=== PATIENT | female | born 1955 | race Caucasian/White ===

== ENCOUNTER 2020-02-21 14:12 | Observation (INO) | payer MEDICARE, OTHER ==
[2020-02-21] MEDS ORDERED: Sodium Chloride 0.9% 10 ML Syringe FLUSH PRN (14:18)
--- NOTE | 2020-02-21 14:29 | EDM.PDOC ---
ED HPI GENERAL MEDICAL PROBLEM - General Chief Complaint: Cardiovascular Problem Stated Complaint: DIZZINESS/CHEST PAIN Time Seen by Provider: 02/21/20 14:12 Source of Information: Reports: Patient History Limitations: Reports: No Limitations - History of Present Illness INITIAL COMMENTS - FREE TEXT/NARRATIVE: 64 YO WF WITH PMH OF ORTHOSTATIC HYPOTENSION PRESENTS TO ER FROM CLINIC WHERE SHE COMPLAINED OF DIZZINESS AND LIGHTHEADEDNESS WITH ASSOCIATED CHEST PAIN AND LEFT ARM NUMBNESS WHICH BEGAN 3 DAYS AGO. PT REPORTS DIZZINESS HAS BEEN GOING ON FOR THE LAST 2 WEEKS, BUT 3 DAYS AGO SHE DEVELOPED INTERMITTENT CHEST PRESSURE WITH DYSPNEA ON EXERTION AND FATIGUE. PT DENIES DIAPHORESIS, OR NAUSEA/VOMITING. PT DENIES FEVER/CHILLS, NO COUGH/CONGESTION, NO URI SYMPTOMS. Duration: Day(s): (3) Location: Reports: Chest Severity: Mild Improves with: Reports: Rest Worsens with: Reports: Movement Associated Symptoms: Reports: Chest Pain, Shortness of Breath, Weakness. Denies: Confusion, Fever/Chills, Nausea/Vomiting, Rash, Syncope Middle Chest Pain Score (Numeric/FACES): 8 - Related Data Allergies Allergy/AdvReac Type Severity Reaction Status Date / Time alcohol Allergy Tremors Verified 02/21/20 14:35 caffeine Allergy Other Verified 02/21/20 14:35 codeine Allergy Other Verified 02/21/20 14:35 Home Meds: Home Meds Aspirin [Ecotrin EC] 81 mg PO DAILY 06/13/15 [History] Clopidogrel [Plavix] 75 mg PO DAILY 06/13/15 [History] Gabapentin [Neurontin] 300 mg PO TID 06/13/15 [History] Hydrocodone/Acetaminophen [Hydrocodone-Acetamin 10-325 mg] 1 - 2 tab PO Q4H PRN 06/13/15 [History] Morphine Sulfate [Morphine Sulfate ER] 60 mg PO BID 06/13/15 [History] Multivitamin [Multi-Day Vitamins] 1 tab PO DAILY 06/13/15 [History] ondansetron HCL [Zofran] 4 mg PO DAILY 06/13/15 [History] Albuterol [Ventolin HFA] 2 puff INH Q4H PRN 02/21/20 [History] Black Cohosh 540 mg PO ASDIRECTED 02/21/20 [History] Cetirizine [ZyrTEC] 10 mg PO DAILY 02/21/20 [History] Cranberry 500 mg PO ASDIRECTED 02/21/20 [History] Donepezil HCl [Aricept] 10 mg PO BEDTIME 02/21/20 [History] Lactobacillus Acidophilus [Probiotic] 1 each PO DAILY 02/21/20 [History] Magnesium Oxide [Magnesium] 400 mg PO DAILY 02/21/20 [History] [place]-3S/DHA/Epa/Fish Oil [[place]-3 Fish Oil 1,000 mg Sfgl] 1 each PO ASDIRECTED 02/21/20 [History] SUMAtriptan succinate [Imitrex] 100 mg PO ASDIRECTED 02/21/20 [History] Simethicone [Gas-X] 125 mg PO ASDIRECTED 02/21/20 [History] Vitamin B Complex [B Complex] 1 each PO DAILY 02/21/20 [History] Vitamin E Mixed [Vitamin E] 1,000 unit PO ASDIRECTED 02/21/20 [History] estradioL [Estrace Vaginal] 1 applic VAG BEDTIME 02/21/20 [History] Past Medical History HEENT History: Reports: Impaired Vision Musculoskeletal History: Reports: Fracture, Neck Pain, Chronic, Other (See Below) Other Musculoskeletal History: Fracture vertebra in neck x 2. Neurological History: Reports: TIA - Past Surgical History GI Surgical History: Reports: Cholecystectomy ED ROS GENERAL - Review of Systems Review Of Systems: See Below Constitutional: Reports: Weakness HEENT: Reports: No Symptoms Respiratory: Reports: No Symptoms, Shortness of Breath Cardiovascular: Reports: Chest Pain, Lightheadedness Endocrine: Reports: No Symptoms GI/Abdominal: Reports: No Symptoms : Reports: No Symptoms Musculoskeletal: Reports: No Symptoms Skin: Reports: No Symptoms Neurological: Reports: Dizziness, Numbness. Denies: Seizure, Syncope, Trouble Speaking, Difficulty Walking, Weakness Psychiatric: Reports: No Symptoms Hematologic/Lymphatic: Reports: No Symptoms Immunologic: Reports: No Symptoms ED EXAM, DIZZINESS - Physical Exam Exam: See Below Exam Limited By: No Limitations General Appearance: Alert, WD/WN, No Apparent Distress Eye Exam: Bilateral Eye: EOMI, PERRL Throat/Mouth: Normal Inspection, Normal Lips, Normal Teeth, Normal Gums, Normal Oropharynx, Normal Voice, No Airway Compromise Head Exam: Atraumatic, Normocephalic Neck: Normal Inspection, Supple, Non-Tender, Full Range of Motion Respiratory/Chest: No Respiratory Distress, Lungs Clear, Normal Breath Sounds, No Accessory Muscle Use, Chest Non-Tender Cardiovascular: Normal Peripheral Pulses, Regular Rate, Rhythm, No Edema, No Gallop, No JVD, No Murmur, No Rub, Bradycardia GI/Abdominal: Normal Bowel Sounds, Soft, Non-Tender, No Organomegaly, No Distention, No Abnormal Bruit, No Mass Neurological: Alert, Normal Mood/Affect, Normal Dorsiflexion, CN II-XII Intact, Normal Plantar Flexion, Normal Gait, Normal Reflexes, No Motor/Sensory Deficits, Oriented x 3 Extremities: Normal Inspection, Normal Range of Motion, Non-Tender, No Pedal Edema, Normal Capillary Refill Psychiatric: Normal Affect, Normal Mood Skin Exam: Warm, Dry, Intact, Normal Color, No Rash #1 Interpretation EKG Date: 02/21/20 Time: 14:26 Rhythm: NSR Rate (Beats/Min): 44 [place]: Normal P-Wave: Present QRS: Normal ST-T: Normal QT: Normal Course - Vital Signs Last Recorded V/S: Last Vital Signs Temp 97.0 F 02/21/20 14:15 Pulse 49 L 02/21/20 15:45 Resp 7 L 02/21/20 15:45 BP 150/81 H 02/21/20 15:45 Pulse Ox 97 02/21/20 15:45 - Orders/Labs/Meds Orders: Active Orders 24 hr Category Date Time Status EKG Documentation Completion [RC] ASDIRECTED Care 02/21/20 14:20 Ordered Peripheral IV Care [RC] . DIRECTED Care 02/21/20 14:19 Ordered FREE T3 [REF] Stat Lab 02/21/20 14:36 Ordered Sodium Chloride 0.9% [Saline Flush] Med 02/21/20 14:18 Ordered 10 ml FLUSH Q8HR PRN Peripheral IV Insertion Adult [OM.PC] Routine Oth 02/21/20 14:18 Ordered EKG 12 Lead [EK] Stat Ther 02/21/20 14:18 Ordered Medication Orders Sodium Chloride (Saline Flush) 10 ml FLUSH Q8HR PRN PRN Reason: keep vein open Last Admin: 02/21/20 15:00 Dose: 10 ml Documented by: DEYSI Labs: Laboratory Tests 02/21/20 02/21/20 02/21/20 Range/Units 14:25 14:25 15:05 WBC 7.87 (5.00-10.00) 10^3/uL RBC 4.72 (3.80-5.50) 10^6/uL Hgb 14.4 (12.0-16.0) g/dL Hct 43.1 (37.0-47.0) % MCV 91.3 (82.0-92.0) fL MCH 30.5 (27.0-31.0) pg MCHC 33.4 (32.0-36.0) g/dL RDW 12.4 (11.5-14.5) % Plt Count 154 (150-400) 10^3/uL MPV 10.5 H (7.4-10.4) fL Immature Gran % (Auto) 0.0 (0.0-5.0) % Neut % (Auto) 54.1 (50.0-70.0) % Lymph % (Auto) 36.6 (20.0-40.0) % [place] % (Auto) 6.9 (2.0-8.0) % Eos % (Auto) 1.9 (1.0-3.0) % Baso % (Auto) 0.5 (0.0-1.0) % Neut # (Auto) 4.26 (2.50-7.00) 10^3/uL Lymph # (Auto) 2.88 (1.00-4.00) 10^3/uL [place] # (Auto) 0.54 (0.10-0.80) 10^3/uL Eos # (Auto) 0.15 (0.10-0.30) 10^3/uL Baso # (Auto) 0.04 (0.00-0.10) 10^3/uL Immature Gran # (Auto) 0.00 (0.00-0.50) 10^3/uL PT 9.9 (9.2-11.2) SEC INR 1.0 (0.9-1.1) APTT 28.7 (22.8-31.4) SEC Sodium 139 (136-145) mmol/L Potassium 4.3 (3.3-5.3) mmol/L Chloride 104 (98-115) mmol/L Carbon Dioxide 30.9 (21.0-32.0) mmol/L Anion Gap 8.4 (5-15) mmol/L BUN 12 (6-25) mg/dL Creatinine 0.78 (0.51-1.17) mg/dL Est Cr Clr Drug Dosing 65.57 mL/min Estimated GFR (MDRD) > 60 mL/min Glucose 101 H (75 - 99) mg/dL Calcium 9.0 (8.7-10.3) mg/dL Total Bilirubin 0.5 (0.2-1.0) mg/dL AST 24 (15-37) U/L ALT 19 (12-78) U/L Alkaline Phosphatase 57 (46-116) IU/L Creatine Kinase 52 (26-276) U/L CK-MB (CK-2) 0.70 (0.00-4.30) ng/mL Troponin I < 0.04 (0.00-0.070) ng/mL Total Protein 7.4 (6.4-8.2) g/dL Albumin 3.45 (3.00-4.80) g/dL Free T4 (0.59-1.17) ng/dL TSH, Ultra Sensitive (0.340-4.820) uIU/mL Urine Opiates Screen (NEGATIVE) Ur Oxycodone Screen (NEGATIVE) Urine Methadone Screen (NEGATIVE) Ur Propoxyphene Screen (NEGATIVE) Ur Barbiturates Screen (NEGATIVE) Ur Tricyclics Screen (NEGATIVE) Ur Phencyclidine Scrn (NEGATIVE) Ur Amphetamine Screen (NEGATIVE) U Methamphetamines Scrn (NEGATIVE) U Benzodiazepines Scrn (NEGATIVE) U Cocaine Metab Screen (NEGATIVE) U Marijuana (THC) Screen (NEGATIVE) 02/21/20 02/21/20 Range/Units 15:05 15:38 WBC (5.00-10.00) 10^3/uL RBC (3.80-5.50) 10^6/uL Hgb (12.0-16.0) g/dL Hct (37.0-47.0) % MCV (82.0-92.0) fL MCH (27.0-31.0) pg MCHC (32.0-36.0) g/dL RDW (11.5-14.5) % Plt Count (150-400) 10^3/uL MPV (7.4-10.4) fL Immature Gran % (Auto) (0.0-5.0) % Neut % (Auto) (50.0-70.0) % Lymph % (Auto) (20.0-40.0) % [place] % (Auto) (2.0-8.0) % Eos % (Auto) (1.0-3.0) % Baso % (Auto) (0.0-1.0) % Neut # (Auto) (2.50-7.00) 10^3/uL Lymph # (Auto) (1.00-4.00) 10^3/uL [place] # (Auto) (0.10-0.80) 10^3/uL Eos # (Auto) (0.10-0.30) 10^3/uL Baso # (Auto) (0.00-0.10) 10^3/uL Immature Gran # (Auto) (0.00-0.50) 10^3/uL PT (9.2-11.2) SEC INR (0.9-1.1) APTT (22.8-31.4) SEC Sodium (136-145) mmol/L Potassium (3.3-5.3) mmol/L Chloride (98-115) mmol/L Carbon Dioxide (21.0-32.0) mmol/L Anion Gap (5-15) mmol/L BUN (6-25) mg/dL Creatinine (0.51-1.17) mg/dL Est Cr Clr Drug Dosing mL/min Estimated GFR (MDRD) mL/min Glucose (75 - 99) mg/dL Calcium (8.7-10.3) mg/dL Total Bilirubin (0.2-1.0) mg/dL AST (15-37) U/L ALT (12-78) U/L Alkaline Phosphatase (46-116) IU/L Creatine Kinase (26-276) U/L CK-MB (CK-2) (0.00-4.30) ng/mL Troponin I (0.00-0.070) ng/mL Total Protein (6.4-8.2) g/dL Albumin (3.00-4.80) g/dL Free T4 0.56 L (0.59-1.17) ng/dL TSH, Ultra Sensitive 3.380 (0.340-4.820) uIU/mL Urine Opiates Screen Positive H (NEGATIVE) Ur Oxycodone Screen Negative (NEGATIVE) Urine Methadone Screen Negative (NEGATIVE) Ur Propoxyphene Screen Negative (NEGATIVE) Ur Barbiturates Screen Negative (NEGATIVE) Ur Tricyclics Screen Negative (NEGATIVE) Ur Phencyclidine Scrn Negative (NEGATIVE) Ur Amphetamine Screen Negative (NEGATIVE) U Methamphetamines Scrn Negative (NEGATIVE) U Benzodiazepines Scrn Negative (NEGATIVE) U Cocaine Metab Screen Negative (NEGATIVE) U Marijuana (THC) Screen Negative (NEGATIVE) Meds: Medications Generic Name Dose Route Start Last Admin Trade Name Freq PRN Reason Stop Dose Admin Sodium Chloride 10 ml 02/21/20 14:18 02/21/20 15:00 Saline Flush FLUSH 10 ml Q8HR PRN Administration keep vein open - Radiology Interpretation Free Text/Narrative:: CT HEAD- NAD CXR-NAD Departure - Departure Time of Disposition: 16:14 Disposition: Admitted As Inpatient 66 Condition: Good Clinical Impression: Bradycardia Chest pain Qualifiers: Chest pain type: unspecified Qualified Code(s): R07.9 - Chest pain, unspecified - Discharge Information Referrals: Olga Lidia Wallace MD [Primary Care Provider] - Forms: ED Department Discharge Sepsis Event Note (ED) - Focused Exam Vital Signs: Vital Signs Temp Pulse Resp BP Pulse Ox 02/21/20 15:45 49 L 7 L 150/81 H 97 02/21/20 15:30 52 L 8 L 157/85 H 97 02/21/20 15:15 46 L 7 L 134/59 L 99 02/21/20 15:00 47 L 8 L 98 02/21/20 14:45 46 L 9 L 120/57 L 98 02/21/20 14:30 46 L 7 L 158/58 H 99 02/21/20 14:15 97.0 F 47 L 13 176/66 H 97 - My Orders Last 24 Hours: My Active Orders 02/21/20 14:18 Sodium Chloride 0.9% [Saline Flush] 10 ml FLUSH Q8HR PRN Peripheral IV Insertion Adult [OM.PC] Routine EKG 12 Lead [EK] Stat 02/21/20 14:19 Peripheral IV Care [RC] . DIRECTED 02/21/20 14:20 EKG Documentation Completion [RC] ASDIRECTED 02/21/20 14:36 FREE T3 [REF] Stat - Assessment/Plan Last 24 Hours: My Active Orders 02/21/20 14:18 Sodium Chloride 0.9% [Saline Flush] 10 ml FLUSH Q8HR PRN Peripheral IV Insertion Adult [OM.PC] Routine EKG 12 Lead [EK] Stat 02/21/20 14:19 Peripheral IV Care [RC] . DIRECTED 02/21/20 14:20 EKG Documentation Completion [RC] ASDIRECTED 02/21/20 14:36 FREE T3 [REF] Stat Assessment:: 1. CHEST PAIN 2. BRADYCARDIA 3. DIZZINESS Plan: 1. ADMIT TO MEDICINE- DR CEVALLOS ACCEPTING 2. TROP I Q4 X 3 3. SUPPORTIVE CARE 4. HOLTER MONITOR OUTPATIENT
[2020-02-21 15:05] LABS: ANION GAP 8.4 mmol/L (5-15); CHLORIDE,CL 104 mmol/L (98-115); SODIUM,NA 139 mmol/L (136-145)
--- NOTE | 2020-02-21 15:17 | CT ---
[id number] CT/CT Head WO IV EXAM: CT Head WO IV CLINICAL DATA: DIZZINESS COMPARISON: CORRELATION IS MADE WITH JULY 18, 2018 FINDINGS: There is no mass or mass effect. There is no hemorrhage or hydrocephalus. There are no extra-axial fluid collections. There are no sites of abnormal attenuation. IMPRESSION: NO PLAIN CT EVIDENCE OF ACUTE INTRACRANIAL PROCESS. Benedicto Cleaning MD 02/21/20 [id number] Thank you for allowing us to participate in the care of your patient.
--- NOTE | 2020-02-21 15:18 | CR ---
[id number] RAD/RAD Chest PA And Lateral EXAM: RAD Chest PA And Lateral CLINICAL DATA: CHEST PAIN COMPARISON: CORRELATION IS MADE WITH AUGUST 19, 2019 FINDINGS: The lungs are clear. The cardiomediastinal contour is mildly prominent but stable. The regional bones and soft tissues are unremarkable. IMPRESSION: NO ACUTE PROCESS. Benedicto Cleaning MD 02/21/20 [id number] Thank you for allowing us to participate in the care of your patient.
[2020-02-21 15:36] LABS: PTT,PARTIAL THROMBOPLSTIN TIME 28.7 SEC (22.8-31.4)
[2020-02-21 15:56] LABS: BARBITURATE SCREEN,URINE NEGATIVE (NEGATIVE); BENZODIAZEPINES SCREEN,URINE NEGATIVE (NEGATIVE); TCA SCREEN,URINE NEGATIVE (NEGATIVE); THC SCREEN,URINE 50 NG/ML NEGATIVE (NEGATIVE)
[2020-02-21] MEDS ORDERED: Acetaminophen/HYDROcodone 325-10 MG Tab PO PRN (18:43)
[2020-02-21] MEDS ORDERED: Albuterol 8 GM Inhaler INH PRN (18:43)
[2020-02-21] MEDS ORDERED: SUMAtriptan 25 MG Tab PO PRN (18:45)
[2020-02-21] MEDS ORDERED: Estradiol 0.01% Vaginal Crm 42.5 GM Tube VAG SCH (18:45)
[2020-02-21] MEDS: Morphine 30 MG Tab.ER PO SCH (20:20)
[2020-02-21] MEDS: Gabapentin 300 MG Cap PO SCH (20:21)
[2020-02-21] MEDS ORDERED: Donepezil 10 MG Tab PO SCH (21:00)
[2020-02-22] MEDS: Ondansetron 4 MG Tab.DIS PO PRN ×2 (01:18→07:47)
[2020-02-22 06:44] VITALS: BP 139/62; PULSE 53
[2020-02-22] MEDS: Magnesium Oxide 500 MG Tab PO SCH ×2 (08:02→10:43)
[2020-02-22] MEDS: Gabapentin 300 MG Cap PO SCH (08:02)
[2020-02-22] MEDS: Morphine 30 MG Tab.ER PO SCH (08:03)
[2020-02-22] MEDS: Fish Oil/Omega-3 Fatty Acids 1 Gm Cap PO SCH ×2 (08:04→10:43)
[2020-02-22 08:44] LABS: CHLORIDE,CL 104 mmol/L (98-115)
[2020-02-22] MEDS ORDERED: Aspirin 81 MG Tab.EC PO SCH (09:00)
[2020-02-22] MEDS ORDERED: Lactobacillus Rhamnosus GG (Probiotic) Cap PO SCH (09:00)
[2020-02-22] MEDS ORDERED: Vitamin B Complex Tab PO SCH (09:00)
[2020-02-22] MEDS ORDERED: Multivitamins with Minerals/Iron/Folic Acid/Lycopene Tab PO SCH (09:00)
[2020-02-22] MEDS ORDERED: Clopidogrel 75 MG Tab PO SCH (09:00)
[2020-02-22] MEDS ORDERED: Cetirizine 10 MG Tab PO SCH (09:00)
[2020-02-22 09:37] LABS: ANION GAP 12.5 mmol/L (5-15); SODIUM,NA 140 mmol/L (136-145)
--- NOTE | 2020-02-22 14:27 | DISCH ---
HISTORY OF PRESENT ILLNESS: This is a 64-year-old white female who was initially seen in the clinic yesterday by Dr. Olga Lidia Nelson and sent to the emergency room due to orthostatic hypotension, dizziness, lightheadedness associated with chest pain and left arm numbness. Her symptoms had actually started three days prior to coming to the clinic. She was also found to be bradycardic. Her initial troponins were negative. She has been monitored per telemetry. Her heart rate has ranged in between 50s and 60s without ectopics. She had a heart rate of 99 when I walked into the nurse's station today though, however. When interviewing the patient today, she states that she has not had any chest pain overnight. She is feeling better but still is somewhat dizzy. This has been going on for the last three years for this patient. She did receive midodrine in the emergency room and this actually made her dizziness worse. Significant lab data from today. CBC was completely normal. Hemoglobin 13.9. Chemistries normal with the exception of a slightly low calcium of 8.6 and slightly low magnesium of 1.7. The patient does take a magnesium supplement at home and has not received them for the last two days. She does not receive a calcium supplement, however. Her troponin has been less than 0.04 throughout her hospital stay and in the emergency room this morning it is right at 0.04. PHYSICAL EXAMINATION: VITAL SIGNS: Temp is 97.2, pulse 53, respirations 16, blood pressure 139/62, O2 saturation is 95% on room air. SKIN: Warm and dry to touch. CARDIAC: Reveals S1, S2 to be normal. Rate and rhythm are regular. No murmur, click, or gallop is auscultated. LUNGS: Clear without wheezes, rales, or rhonchi. ABDOMEN: Soft, obese, nontender. Bowel sounds present in all four quadrants. EXTREMITIES: There is no pedal edema. IMPRESSION: 1. Hypotension. This has improved. 2. Dizziness. This is a longstanding problem for this patient. She still is somewhat dizzy, however, hemodynamically stable. 3. Chest pain with left arm numbness. This has resolved and she has ruled out for [place] with negative troponin. She will be discharged from the hospital today. She will follow up with Dr. Nelson next week. She can anticipate having a Holter monitor for 48 hours as well as echocardiogram. I have communicated all of my findings to Dr. Nelson today. 4. The patient is on Plavix and aspirin. 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 5. She does have chronic pain, fibromyalgia and neuropathy for which she takes gabapentin, hydrocodone, and morphine. 6. She has seasonal allergies and takes cetirizine. 7. She does have some early onset dementia and is taking donepezil. She does have migraine headaches and uses sumatriptan as needed. 8. She does have hypomagnesemia and takes a magnesium supplement. 9. She takes quite a few dietary supplements including vitamin B, vitamin E, omega-3, lactobacillus, cranberry, black cohosh, multivitamin. The patient agrees with the plan of care and wishes to proceed. She is quite anxious to go home. She was urged to call the clinic or the hospital should she have any questions or concerns. She was sent home on all of the same medications she was admitted with without any changes. /[id number]/MODL
== END 2020-02-22 11:00 | disposition home or self-care (01) ==
LOC: KA.ED 14:12 → KA.MS 16:15
PROVIDERS: ADMIT Internal Medicine; ATTEND Internal Medicine
DX: I95.9 Hypotension, unspecified (principal); R07.9 Chest pain, unspecified; R00.1 Bradycardia, unspecified; G89.29 Other chronic pain; G62.9 Polyneuropathy, unspecified; M79.7 Fibromyalgia; F03.90 Unspecified dementia, unspecified severity, without behavioral disturbance, psychotic disturbance, mood disturbance, and anxiety; G43.909 Migraine, unspecified, not intractable, without status migrainosus; Z88.5 Allergy status to narcotic agent; Z79.82 Long term (current) use of aspirin; Z79.899 Other long term (current) drug therapy; Z86.73 Personal history of transient ischemic attack (TIA), and cerebral infarction without residual deficits; Z90.49 Acquired absence of other specified parts of digestive tract; Z79.02 Long term (current) use of antithrombotics/antiplatelets
CPT/HCPCS: 36415; 70450; 71046; 80053; 80305; 82550; 82553; 83735; 84439; 84443; 84481; 84484; 85025; 85610; 85730; 93005; 99285; A9270; G0378; U0002

== ENCOUNTER 2022-11-05 13:15 | Emergency (ER) | payer MEDICARE, MEDICAID ==
[2022-11-05 13:45] LABS: BASOPHILS ABSOLUTE AUTO 0.04 10^3/uL (0.00-0.10); BASOPHILS PERCENT AUTO 0.5 % (0.0-1.0); EOSINOPHILS ABSOLUTE AUTO 0.11 10^3/uL (0.10-0.30); EOSINOPHILS PERCENT AUTO 1.3 % (1.0-3.0); HEMATOCRIT 41.1 % (37.0-47.0); HEMOGLOBIN 13.7 g/dL (12.0-16.0); IMMATURE GRAN ABSOLUTE AUTO 0.02 10^3/uL (0.00-0.50); IMMATURE GRAN PERCENT AUTO 0.2 % (0.0-5.0); LYMPHOCYTES ABSOLUTE AUTO 2.43 10^3/uL (1.00-4.00); LYMPHOCYTES PERCENT AUTO 29.7 % (20.0-40.0); MEAN CORPUSCULAR HEMOGLOBIN 30.6 pg (27.0-31.0); MEAN CORPUSCULAR HGB CONC 33.3 g/dL (32.0-36.0); MEAN CORPUSCULAR VOLUME 91.7 fL (82.0-92.0); MEAN PLATELET VOLUME 9.8 fL (7.4-10.4); MONOCYTES ABSOLUTE AUTO 0.62 10^3/uL (0.10-0.80); MONOCYTES PERCENT AUTO 7.6 % (2.0-8.0); NEUTROPHILS ABSOLUTE AUTO 4.95 10^3/uL (2.50-7.00); NEUTROPHILS PERCENT AUTO 60.7 % (50.0-70.0); PLATELET COUNT,PLT 176 10^3/uL (150-400); RED BLOOD CELL COUNT 4.48 10^6/uL (3.80-5.50); WHITE BLOOD CELL COUNT,WBC 8.17 10^3/uL (5.00-10.00)
[2022-11-05] MEDS: Sodium Chloride 0.9% 1,000 ML IV ONE (13:46)
[2022-11-05 13:55] LABS: ALBUMIN 3.56 g/dL (3.40-5.00); ANION GAP 12.2 mmol/L (5-15); BILIRUBIN TOTAL 0.5 mg/dL (0.2-1.0); CALCIUM 9.6 mg/dL (8.7-10.3); CARBON DIOXIDE,CO2 34.6 mmol/L (21.0-32.0); CREATININE 0.81 mg/dL (0.51-1.17); EST CRCL DRUG DOSING (CG) 61.48 mL/min; POTASSIUM,K 3.8 mmol/L (3.5-5.1); PROTEIN TOTAL,TP 7.9 g/dL (6.4-8.2)
[2022-11-05 15:01] LABS: APPEARANCE,URINE SLIGHTLY CLOUDY (CLEAR); BILIRUBIN,URINE NEGATIVE (NEGATIVE); COLOR,URINE YELLOW (YELLOW); GLUCOSE,URINE NEGATIVE (NEGATIVE); KETONES,URINE NEGATIVE (NEGATIVE); LEUKOCYTE ESTERASE,URINE SMALL (NEGATIVE); NITRITE,URINE NEGATIVE (NEGATIVE); OCCULT BLOOD,URINE NEGATIVE (NEGATIVE); PROTEIN,URINE NEGATIVE (NEGATIVE); UROBILINOGEN,URINE 0.2 E.U./dL (0.2-1.0)
[2022-11-05 15:08] LABS: BACTERIA,URINE FEW /HPF (NONE TO FEW); EPITHELIAL CELLS,URINE FEW /LPF; RBC,URINE 0-5 /HPF (0-5)
[2022-11-05 15:20] VITALS: BP 125/72; PULSE 65
== END 2022-11-05 15:20 | disposition home or self-care (01) ==
LOC: KA.ED 13:15
DX: R55 Syncope and collapse (principal); I10 Essential (primary) hypertension; M19.90 Unspecified osteoarthritis, unspecified site; E66.9 Obesity, unspecified; Z91.048 Other nonmedicinal substance allergy status; Z88.5 Allergy status to narcotic agent; Z91.018 Allergy to other foods; Z79.82 Long term (current) use of aspirin; Z79.899 Other long term (current) drug therapy; Z68.30 Body mass index [BMI] 30.0-30.9, adult
CPT/HCPCS: 80053; 81001; 85025; 87086; 93010; 96360; 99284; 99284-25; J7030